=== PATIENT | male | born 1980 | race Two or more races ===

== ENCOUNTER 2024-06-21 04:11 | Emergency (ER) | payer MEDICAID ==
[~2024-06-21] VITALS: Ht 162.6 cm; Wt 86.9 kg
[2024-06-21 04:24] VITALS: BP 150/94; PULSE 72; RESP 20; O2SAT 98
== END 2024-06-21 07:24 | disposition left against medical advice (07) ==
LOC: ER 04:11
DX: R09.81 Nasal congestion (principal); Z53.21 Procedure and treatment not carried out due to patient leaving prior to being seen by health care provider